=== PATIENT | male | born 1975 | race Two or more races ===

== ENCOUNTER 2017-05-30 16:56 | Emergency (ER) | payer OTHER ==
[2017-05-30 17:37] LABS: INFLUENZA A PATIENT NEGATIVE (NEGATIVE); INFLUENZA B PATIENT NEGATIVE (NEGATIVE); OBC FLU VALID
== END 2017-05-30 17:59 | disposition home or self-care (01) ==
LOC: ER 16:56
DX: J06.9 Acute upper respiratory infection, unspecified (principal); Z88.0 Allergy status to penicillin
CPT/HCPCS: 71046; 87804; 87804-59; 99285-25